=== PATIENT | male | born 1985 | race Caucasian/White ===

== ENCOUNTER 2017-05-07 16:02 | Emergency (ER) | payer OTHER, BC ==
[~2017-05-07] VITALS: Ht 177.8 cm; Wt 90.7 kg
[~2017-05-07 16:02] MED LIST: DEXT20CA7 PO; OXYC15TA PO
[2017-05-07 16:10] VITALS: BP 183/83
[2017-05-07] MEDS ORDERED: IV NORMAL SALINE 1000ML BAG 1,000 ML IV ONE (16:30)
--- NOTE | 2017-05-07 16:30 | PHYS DOC ---
Past Medical History Past Medical History: Other Additional Past Medical Histor: NERVE DAMAGE AFFECTING LEFT ARM, LEFT LEG, AND NECK Past Surgical History: Cervical Fusion Alcohol Use: Occasionally Drug Use: Marijuana Adult General Chief Complaint Chief Complaint: HEAT EXPOSURE HPI HPI Patient is a 31 year old male with history of cervical radiculopathy and neck pain who presents today with multiple complaints. Patient himself states he was working with a chain saw and developed excruciating pain on the left neck radiating into the left upper extremity, LLE pain, which he states is not unusual for him due to chronic neck pain and neck pain due to nerve injury to the neck. Patient is in the ED with a friend who states he appeared disoriented and was about to pass out. Patient states he felt dizzy. Friend to patient states, patient has been out working all day in the heat. Review of Systems Review of Systems Constitutional: Denies fever or chills [] Eyes: Denies change in visual acuity, redness, or eye pain [] HENT: Denies nasal congestion or sore throat [] Respiratory: Denies cough or shortness of breath [] Cardiovascular: No additional information not addressed in HPI [] GI: Denies abdominal pain, nausea, vomiting, bloody stools or diarrhea [] : Denies dysuria or hematuria [] Musculoskeletal: Neck pain radiating to the left upper extremity Integument: Denies rash or skin lesions [] Neurologic: Disorientation, Endocrine: Denies polyuria or polydipsia [] Current Medications Current Medications Current Medications Medications (Trade) Dose Ordered Sig/[facility] Start Time Stop Time Status Last Admin Dose Admin Dexamethasone Sodium Phosphate (Decadron) 10 mg 1X ONCE 05/07/17 18:30 05/07/17 18:31 UNV Diazepam (Valium) 5 mg 1X ONCE 05/07/17 16:45 05/07/17 16:46 DC 05/07/17 16:31 5 MG Fentanyl Citrate (Fentanyl 2ml Vial) 50 mcg 1X ONCE 05/07/17 18:30 05/07/17 18:31 UNV Ketorolac Tromethamine (Toradol) 30 mg 1X ONCE 05/07/17 18:30 05/07/17 18:31 UNV Sodium Chloride 1,000 ml @ 1,000 mls/hr 1X ONCE 05/07/17 16:30 05/07/17 17:29 DC 05/07/17 16:34 1,000 MLS/HR Allergies Allergies Allergies Coded Allergies Type Severity Reaction Last Updated Verified Penicillins Allergy Intermediate 04/29/16 Yes hydrocodone Allergy Intermediate 04/29/16 Yes Physical Exam Physical Exam Constitutional: Well developed, well nourished, no acute distress, non-toxic appearance. [] HENT: Normocephalic, atraumatic, bilateral external ears normal, oropharynx moist, no oral exudates, nose normal. [] Eyes: PERRLA, EOMI, conjunctiva normal, no discharge. [] Neck: Normal range of motion, no tenderness, supple, no stridor. [] Cardiovascular:Heart rate regular rhythm, no murmur [] Lungs & Thorax: Bilateral breath sounds clear to auscultation [] Abdomen: Bowel sounds normal, soft, no tenderness, no masses, no pulsatile masses. [] Skin: Warm, dry, no erythema, no rash. [] Back: No tenderness, no CVA tenderness. [] Extremities: No tenderness, no cyanosis, no clubbing, ROM intact, no edema. Full range of motion to the left upper extremity not possible due to pain especially when patient's left upper extremity was raised above his head. Neurologic: Alert and oriented X 3, normal motor function, normal sensory function, no focal deficits noted. Cranial nerves II through XII intact Psychologic: Affect normal, judgement normal, mood normal. [] Current Patient Data Vital Signs Vital Signs Date Time Temp Pulse Resp B/P (MAP) Pulse Ox O2 Delivery O2 Flow Rate FiO2 05/07/17 17:04 18 05/07/17 16:10 98.3 89 183/83 (116) 95 Room Air 98.3 Lab Values Laboratory Tests Test 05/07/17 16:11 White Blood Count 11.4 x10^3/uL (4.0-11.0) H Red Blood Count 5.61 x10^6/uL (4.30-5.70) Hemoglobin 17.2 g/dL (13.0-17.5) Hematocrit 48.5 % (39.0-53.0) Mean Corpuscular Volume 87 fL (79-100) Mean Corpuscular Hemoglobin 31 pg (25-35) Mean Corpuscular Hemoglobin Concent 36 g/dL (31-37) Red Cell Distribution Width 13.3 % (11.5-14.5) Platelet Count 228 x10^3/uL (140-400) Neutrophils (%) (Auto) 71 % (31-73) Lymphocytes (%) (Auto) 20 % (24-48) L Monocytes (%) (Auto) 9 % (0-9) Eosinophils (%) (Auto) 0 % (0-3) Basophils (%) (Auto) 0 % (0-3) Neutrophils # (Auto) 8.0 x10^3uL (1.8-7.7) H Lymphocytes # (Auto) 2.2 x10^3/uL (1.0-4.8) Monocytes # (Auto) 1.0 x10^3/uL (0.0-1.1) Eosinophils # (Auto) 0.0 x10^3/uL (0.0-0.7) Basophils # (Auto) 0.0 x10^3/uL (0.0-0.2) Sodium Level 141 mmol/L (136-145) Potassium Level 4.9 mmol/L (3.5-5.1) Chloride Level 102 mmol/L (98-107) Carbon Dioxide Level 27 mmol/L (21-32) Anion Gap 12 (6-14) Blood Urea Nitrogen 24 mg/dL (8-26) Creatinine 1.5 mg/dL (0.7-1.3) H Estimated GFR (Cockcroft-Gault) 54.6 BUN/Creatinine Ratio 16 (6-20) Glucose Level 91 mg/dL (70-99) Calcium Level 10.2 mg/dL (8.5-10.1) H Magnesium Level 2.0 mg/dL (1.8-2.4) Total Bilirubin 1.2 mg/dL (0.2-1.0) H Aspartate Amino Transferase (AST) 31 U/L (15-37) Alanine Aminotransferase (ALT) 82 U/L (16-63) H Alkaline Phosphatase 62 U/L (46-116) Creatine Kinase 236 U/L (39-308) Creatine Kinase MB (Mass) 1.6 ng/mL (0.0-3.6) Creatine Kinase MB Relative Index 0.7 % (0-4) Myoglobin 222 ng/mL (16-96) H Troponin I Quantitative < 0.017 ng/mL (0.000-0.055) ZV-Xhd-H-Type Natriuretic Peptide 26 pg/mL (0-124) Total Protein 8.8 g/dL (6.4-8.2) H Albumin 4.9 g/dL (3.4-5.0) Albumin/Globulin Ratio 1.3 (1.0-1.7) Lipase 77 U/L (73-393) Ethyl Alcohol Level < 10 mg/dL (0-10) Laboratory Tests 05/07/17 16:11 Laboratory Tests 05/07/17 16:11 EKG EKG [] Radiology/Procedures Radiology/Procedures [] Course & Med Decision Making Course & Med Decision Making Pertinent Labs and Imaging studies reviewed. (See chart for details) Patient is in the ED to be evaluated for multiple complaints. Patient states he was working with a chainsaw outside when he he developed increasing pain from the left neck into the left upper extremity, LLE pain. He has history of cervical radiculopathy with left upper extremity chronic pain, left lower extremity chronic pain and neck pain. Patient is in the ED with a friend who was present at the onset of his symptoms he states patient was disoriented while working outside and vomited [employer]. Chest x-ray interpreted by was negative for any acute findings. CBC with a WBC of 11.4, CMP with creatinine of 1.5, BUN of 24, myoglobin of 222 , ALT of 82. Cardiac workup is negative. Vitals on arrival to the ED temperature is 98.8, heart rate 89, O2 sats 95% on room air, respiration 18, pressure 183/83. No history of palpitation. Patient has been given 1 L of IV fluid fentanyl and Toradol and Decadron and Valium. He was discharged with instructions to avoid being outside in the heat. He was instructed to push fluids. We recommended he follows up with his own PCP as well as neurosurgeon for ongoing neck pain with cervical radiculopathy. We provided him a doctor's list for follow-up. Dragon Disclaimer Dragon Disclaimer This electronic medical record was generated, in whole or in part, using a voice recognition dictation system. Departure Departure Impression: Primary Impression: Heat stroke Additional Impressions: Hypertension Cervical radicular pain Chronic neck pain Chronic pain of left lower extremity Disposition: HOME, SELF-CARE Condition: STABLE Referrals: NO PCP (PCP) Follow-up with your primary care doctor as well as a neurolosurgeon as soon as possible Patient Instructions: Cervical Radiculopathy, [id number], Heat Disorders- Brief Additional Instructions: You were seen after suffering from a heat stroke. Avoid being outside in the heat for the next 24-48 hours. Push fluids. Follow up with your primary care doctor as soon as you can for the heat stroke, your blood pressure was also elevated at 183/83. Follow-up with the primary care doctor and have this rechecked. You can follow up with a doctor from the list provided in one week. Follow-up with your neurosurgeon for chronic neck and upper and lower extremity pain. Come back to the ED if symptoms worsen. Scripts Ondansetron (ZOFRAN ODT) 4 Mg Tab.rapdis 1 TAB SL Q8HRS, #15 TAB Prov: MAX PENA APRN 05/07/17 Diazepam (VALIUM) 10 Mg Tablet 10 MG PO TID Y for MUSCLE SPASMS, #12 TAB Prov: MAX PENA APRN 05/07/17 Problem Qualifiers Primary Impression: Heat stroke Encounter type: initial encounter Qualified Codes: T67.0XXA - Heatstroke and sunstroke, initial encounter Additional Impressions: Hypertension Hypertension type: unspecified secondary hypertension Qualified Codes: I15.9 - Secondary hypertension, unspecified MAX PENA APRN May 07, 2017 16:30
[2017-05-07 16:36] LABS: BASO % 0 % (0-3); EOS % 0 % (0-3); HEMATOCRIT 48.5 % (39.0-53.0); HEMOGLOBIN 17.2 g/dL (13.0-17.5); LYMPH # 2.2 x10^3/uL (1.0-4.8); LYMPH % 20 % (24-48); MEAN CORPUSCULAR HEMOGLOBIN 31 pg (25-35); MEAN CORPUSCULAR HGB CONC 36 g/dL (31-37); MEAN CORPUSCULAR VOLUME 87 fL (79-100); MONO % 9 % (0-9); NEUT % 71 % (31-73); PLATELET COUNT 228 x10^3/uL (140-400); RED BLOOD COUNT 5.61 x10^6/uL (4.30-5.70); RED CELL DISTRIBUTION WIDTH 13.3 % (11.5-14.5); WHITE BLOOD COUNT 11.4 x10^3/uL (4.0-11.0)
[2017-05-07 16:57] LABS: CALCIUM 10.2 mg/dL (8.5-10.1); CREATININE 1.5 mg/dL (0.7-1.3); GFR 54.6; POTASSIUM 4.9 mmol/L (3.5-5.1)
[2017-05-07] MEDS ORDERED: fentaNYL PF VIAL 100 MCG/2 ML VIAL IV ONE ×2 (17:00→19:00)
[2017-05-07 17:01] LABS: ALBUMIN 4.9 g/dL (3.4-5.0); ALBUMIN/GLOBULIN RATIO 1.3 (1.0-1.7); TOTAL BILIRUBIN 1.2 mg/dL (0.2-1.0); TOTAL PROTEIN 8.8 g/dL (6.4-8.2)
--- NOTE | 2017-05-07 17:04 | RAD ---
CT HEAD WO CONTRAST dated 05/07/2017 4:46 PM Indication: Confusion, history of prior cervical fusion. Comparison: No comparison is available. Technique: Contiguous axial imaging of the head was performed from skull base to vertex. One or more of the following individualized dose reduction techniques were utilized for this examination: 1. Automated exposure control 2. Adjustment of the mA and/or kV according to patient size 3. Use of iterative reconstruction technique Findings: Ventricles and sulci are within normal limits for age. No midline shift or mass effect. Brain parenchyma is of normal attenuation. No hemorrhage or extra-axial collection. Posterior fossa and brainstem unremarkable. Visualized paranasal sinuses and mastoid air cells are clear. No acute calvarial abnormality. IMPRESSION: No evidence of acute intracranial abnormality. Electronically signed by: Malcolm Paez MD (05/07/2017 5:01 PM)
[2017-05-07 17:09] LABS: CKMB MASS 1.6 ng/mL (0.0-3.6)
[2017-05-07] MEDS ORDERED: DEXAMETHASONE SOD PHOS 4 MG/ML VIAL ONE (18:31)
[2017-05-07] MEDS ORDERED: VALIUM10 MG PO (18:37)
[2017-05-07] MEDS ORDERED: ONDA4TAB10 SL (18:37)
[2017-05-07] MEDS ORDERED: DEXAMETHASONE SOD PHOS 20 MG/5 ML VIAL. IV ONE (19:00)
[2017-05-07] MEDS ORDERED: KETOROLAC TROMETHAMINE 30 MG/ML INJ. IV ONE (19:00)
--- NOTE | 2017-05-07 20:05 | RAD ---
EXAM: Cervical spine 3 views. HISTORY: Neck pain, cervical fusion, dizziness. COMPARISON: None. FINDINGS: There are changes of C5-6 anterior cervical discectomy and fusion. Alignment appears normal. No fractures are identified. There is no prevertebral soft tissue swelling. Remaining intervertebral disc heights are maintained. IMPRESSION: 1. C5-6 anterior cervical discectomy and fusion. Electronically signed by: Jarrod Laurent MD (05/07/2017 8:02 PM)
--- NOTE | 2017-05-08 08:48 | RAD ---
EXAM: Chest one view. HISTORY: Chest pain. COMPARISON: None. FINDINGS: A frontal view of the chest is obtained. There are no confluent infiltrates. There is no pneumothorax or pleural effusion. The heart is not enlarged. Instrumented anterior cervical discectomy and fusion changes are noted. IMPRESSION: 1. No confluent infiltrates.
== END 2017-05-07 19:00 | disposition home or self-care (01) ==
LOC: ER 16:02
DX: T67.0XXA Heatstroke and sunstroke, initial encounter (principal); I15.9 Secondary hypertension, unspecified; M54.12 Radiculopathy, cervical region; G89.29 Other chronic pain; M79.605 Pain in left leg; F12.10 Cannabis abuse, uncomplicated; Z88.0 Allergy status to penicillin; Z98.1 Arthrodesis status; Z88.5 Allergy status to narcotic agent; X30.XXXA Exposure to excessive natural heat, initial encounter; Y93.89 Activity, other specified; Y92.89 Other specified places as the place of occurrence of the external cause; Y99.8 Other external cause status
CPT/HCPCS: 36415; 70450; 71010; 72040; 80053; 80320; 82553; 83690; 83735; 83874; 83880; 84484; 85027; 96361; 96374; 96375; 96376; 99285; J1100; J1885; J3010; J3360; J7030; G0480